=== PATIENT | female | born 1980 | race American Indian/Alaskan Native ===

== ENCOUNTER 2018-11-19 08:00 | Emergency (ER) | payer MEDICAID, OTHER ==
[2018-11-19 08:10] VITALS: BMI 30.9
[2018-11-19 08:54] LABS: SQUAMOUS EPITHIAL 24 /hpf (0-5); URINE BACTERIA OCC (<OCC); URINE BILIRUBIN NEGATIVE (NEGATIVE); URINE BLOOD NEGATIVE (NEGATIVE); URINE CLARITY Hazy (Clear); URINE COLOR Yellow (YELLOW); URINE GLUCOSE (UA) NORMAL (Normal); URINE LEUKOCYTE ESTERASE 2+ Leu/uL (Negative); URINE PROTEIN NEGATIVE (NEGATIVE)
[2018-11-19 08:56] LABS: HCG,QUALITATIVE URINE NEGATIVE (NEGATIVE)
[2018-11-19] MEDS ORDERED: cefTRIAXone 250 MG, Lidocaine Hydrochloride 1% 1 ML IM ONE (08:58)
--- NOTE | 2018-11-19 09:03 | C.PDOC ---
History Of Present Illness 38 year old female presents complaining of an itching to the groin and thighs that started last night. She also reports using a new body wash to the entire body, then had unprotected intercourse and afterwards noticed itching to the right wrist and groin area. In the ED the pt notes her symptoms have improved. Notes she never saw a rash. Denies throat/lip swelling, difficulty breathing/swallowing, CP, SOB, fever, chills, or any other associated symptoms. Time Seen by Provider: 11/19/18 08:08 Chief Complaint (Nursing): Abnormal Skin Integrity History Per: Patient History/Exam Limitations: no limitations Onset/Duration Of Symptoms: Hrs Current Symptoms Are (Timing): Still Present Associated Symptoms: denies: Fever, Chills Recent travel outside of the [place]: No Past Medical History Reviewed: Historical Data, Nursing Documentation, Vital Signs Vital Signs: Last Vital Signs Temp 98.7 F 11/19/18 08:07 Pulse 79 11/19/18 08:07 Resp 18 11/19/18 08:07 BP 115/72 11/19/18 08:07 Pulse Ox 98 11/19/18 08:07 - [facility] Procedures ASPIRATION SKIN & SUBQ (08/31/13) Family History: States: Unknown Family Hx - Social History Hx Tobacco Use: No Hx Alcohol Use: No Hx Substance Use: No - Immunization History Hx Tetanus Toxoid Vaccination: No Hx Influenza Vaccination: Yes Hx Pneumococcal Vaccination: No Review Of Systems Except As Marked, All Systems Reviewed And Found Negative. Constitutional: Negative for: Fever, Chills ENT: Negative for: Mouth Swelling, Throat Swelling Cardiovascular: Negative for: Chest Pain Respiratory: Negative for: Shortness of Breath, Other (difficulty breathing or swallowing. ) Genitourinary: Negative for: Vaginal Discharge, Vaginal Bleeding Physical Exam - Physical Exam Appears: Non-toxic, No Acute Distress Skin: Warm, Dry, No Rash Head: Atraumatic, Normacephalic Eye(s): bilateral: Normal Inspection, EOMI Ear(s): Bilateral: Normal Nose: Normal Oral Mucosa: Moist Tongue: No Swelling Lips: No Swelling Throat: Normal, No Drooling Neck: Normal ROM, Supple Chest: Symmetrical, No Deformity Cardiovascular: Rhythm Regular Respiratory: Normal Breath Sounds, No Rales, No Rhonchi, No Wheezing Gastrointestinal/Abdominal: Normal Exam, Soft, No Tenderness Pelvic: Normal External Exam, Vaginal Discharge (thick, white. ), No Cervical Motion Tenderness, No Cervix Open Extremity: Normal ROM Neurological/Psych: Oriented x3, Normal Speech, Normal Cognition ED Course And Treatment - Laboratory Results Lab Results: Urine Color Yellow (YELLOW) 11/19/18 08:45 Urine Clarity Hazy (Clear) 11/19/18 08:45 Urine pH 5.0 (5.0-8.0) 11/19/18 08:45 Ur Specific [place] 1.025 (1.003-1.030) 11/19/18 08:45 Urine Protein Negative mg/dL (NEGATIVE) 11/19/18 08:45 Urine Glucose (UA) Normal mg/dL (Normal) 11/19/18 08:45 Urine Ketones Negative mg/dL (NEGATIVE) 11/19/18 08:45 Urine Blood Negative (NEGATIVE) 11/19/18 08:45 Urine Nitrate Negative (NEGATIVE) 11/19/18 08:45 Urine Bilirubin Negative (NEGATIVE) 11/19/18 08:45 Urine Urobilinogen 2.0 mg/dL (0.2-1.0) H 11/19/18 08:45 Ur Leukocyte Esterase 2+ Ana Cristina/uL (Negative) H 11/19/18 08:45 Urine WBC (Auto) 15 /hpf (0-5) H 11/19/18 08:45 Urine RBC (Auto) 5 /hpf (0-3) H 11/19/18 08:45 Ur Squamous Epith Cells 24 /hpf (0-5) H 11/19/18 08:45 Urine Bacteria Occ (<OCC) H 11/19/18 08:45 Urine HCG, Qual Negative (NEGATIVE) 11/19/18 08:45 Urine HCG, Qual Negative (NEGATIVE) 11/19/18 08:45 O2 Sat by Pulse Oximetry: 98 (RA) Pulse Ox Interpretation: Normal Progress Note: UA appears contaminated, no UTI symptoms. Instructed repeat UA with follow up . Pt requested STD prophylasix. Rocephin and Zithromycin given. Discussed signs and symptoms of concern for allergic reaction and to avoid any allergens. Instructed to follow up with PMD in 1-2 days or return to ER if symptoms persits or worsen. Disposition - Disposition Disposition: HOME/ ROUTINE Disposition Time: 09:00 Condition: STABLE Additional Instructions: Avoid any possible allergens including new body washes, foods, and medication. Follow up with your PMD and [facility] in 2-3 days for re-evaluation. Prescriptions: DiphenhydrAMINE [Benadryl] 25 mg PO Q6 #20 cap Metronidazole [Flagyl] 500 mg PO BID #14 tab Instructions: Skin Rash (DC) Forms: [address] (E[place]ian) - Clinical Impression Clinical Impression: Allergic reaction, STD (sexually transmitted disease) - PA / [employer] / Resident Statement MD/DO has reviewed & agrees with the documentation as recorded. - Scribe Statement The provider has reviewed the documentation as recorded by the Scribe (Brenda Sorto) All medical record entries made by the Scribe were at my direction and personally dictated by me. I have reviewed the chart and agree that the record accurately reflects my personal performance of the history, physical exam, medical decision making, and the department course for this patient. I have also personally directed, reviewed, and agree with the discharge instructions and disposition.
[2018-11-19 09:42] VITALS: BP 120/89; PULSE 60; RESP 20; TEMP 98.6
[2018-11-19 10:06] VITALS: O2SAT 98
== END 2018-11-19 09:42 | disposition home or self-care (01) ==
LOC: C.ER 08:00
DX: T78.40XA Allergy, unspecified, initial encounter (principal); A64 Unspecified sexually transmitted disease
CPT/HCPCS: 81001; 84703; 87086; 87491; 87591; 96372; 99285; J0696